=== PATIENT | female | born 1995 | race Caucasian/White ===

== ENCOUNTER 2024-05-27 08:31 | Day surgery (SDC) | payer OTHER ==
[2024-05-23 10:55] VITALS: BMI 37.2
[2024-05-27 11:32] VITALS: RESP 17
[2024-05-27 11:37] VITALS: BP 106/63; PULSE 75; TEMP 97
== END 2024-05-27 10:50 | disposition home or self-care (01) ==
LOC: FASU-ENDO 08:31
PROVIDERS: ATTEND Internal Medicine Gastroenterology
PROC: 0DJD8ZZ Inspection of Lower Intestinal Tract, Via Natural or Artificial Opening Endoscopic (ICD-10-PCS; principal; 2024-05-27 09:42)
DX: K64.8 Other hemorrhoids (principal); K64.4 Residual hemorrhoidal skin tags
CPT/HCPCS: 81025